=== PATIENT | female | born 1980 | race Caucasian/White ===

== ENCOUNTER 2017-02-23 14:16 | Emergency (ER) | payer MEDICAID ==
[~2017-02-23] VITALS: Ht 157.5 cm; Wt 91.0 kg
[2017-02-23 15:51] LABS: CLARITY URINE CLEAR (CLEAR); COLOR URINE YELLOW (YELLOW); GLUCOSE URINE NEGATIVE (NEGATIVE); KETONES URINE 1+ (NEGATIVE); LEUKOCYTE ESTERASE URINE TRACE (NEGATIVE); NITRITE URINE NEGATIVE (NEGATIVE); OCCULT BLOOD URINE 2+ (NEGATIVE); PH URINE 6.5 (4.5-8.0); PROTEIN URINE NEGATIVE (NEGATIVE); SPECIFIC GRAVITY URINE 1.007 (1.005-1.030); UROBILINOGEN URINE 0.2 E.U./dL (0.2-1.0)
[2017-02-23 15:52] LABS: BASOPHILS % 0.3 % (0.0-2.0); EOSINOPHILS % 0.9 % (0.0-5.0); HEMATOCRIT. 36.1 % (36.0-48.0); LYMPHOCYTES % 13.3 % (20.0-50.0); MEAN CORPUSCULAR HEMOGLOBIN 28.9 pg (28.0-32.0); MEAN CORPUSCULAR VOLUME 87.2 fL (81.0-99.0); MONOCYTES % 5.5 % (2.0-8.0); PLATELET 373 x1000/uL (130-400); RED BLOOD CELL COUNT 4.14 mill/uL (4.2-5.4); RED CELL DISTRIBUTION WIDTH 13.6 % (11.6-14.6)
[2017-02-23 16:08] LABS: CARBON DIOXIDE 27 mEq/L (21-32); CHLORIDE 107 mEq/L (98-107)
[2017-02-23 16:11] LABS: TROPONIN I < 0.02 ng/mL (0.00-0.04)
[2017-02-23] MEDS ORDERED: POTASSIUM CHLORIDE 20MEQ TABLET SR PO NR (16:15)
[2017-02-23] MEDS ORDERED: IBUPROFEN 400MG TABLET PO ONE (17:15)
[2017-02-23] MEDS ORDERED: ACETAMINOPHEN 325MG TABLET PO ONE (17:30)
[2017-02-23 17:31] VITALS: BP 123/74
[2017-02-24 09:42] LABS: *AMPHETAMINES SCREEN URINE NEGATIVE (NEGATIVE); *BARBITURATES SCREEN URINE NEGATIVE (NEGATIVE); *BENZODIAZEPINES SCREEN URINE NEGATIVE (NEGATIVE); *COCAINE SCREEN URINE NEGATIVE (NEGATIVE); CANNABINOID URINE SCREEN NEGATIVE (NEGATIVE); METHADONE URINE SCREEN NEGATIVE (NEGATIVE); OPIATES URINE SCREEN NEGATIVE (NEGATIVE); PHENCYCLIDINE URINE SCREEN NEGATIVE (NEGATIVE)
== END 2017-02-23 17:41 | disposition home or self-care (01) ==
LOC: ER 15:54
DX: R07.89 Other chest pain (principal); R20.0 Anesthesia of skin; E87.6 Hypokalemia; R19.7 Diarrhea, unspecified; R11.10 Vomiting, unspecified
CPT/HCPCS: 36415; 71010; 80053; 80305; 81001; 81025; 83690; 84484; 85025; 93005; 99285; Z7610

== ENCOUNTER 2017-06-03 17:41 | Emergency (ER) | payer MEDICAID ==
[~2017-06-03] VITALS: Ht 157.5 cm; Wt 91.0 kg
[2017-06-04] MEDS ORDERED: SODIUM CHLORIDE 0.9% 1,000 ML IV ONE (00:03)
[2017-06-04] MEDS ORDERED: ONDANSETRON HCL 4MG/2ML VIAL IV SCH (00:15)
[2017-06-04] MEDS ORDERED: KETOROLAC 30MG/ML VIAL IV SCH (00:15)
[2017-06-04 00:20] LABS: CLARITY URINE CLEAR (CLEAR); COLOR URINE YELLOW (YELLOW); GLUCOSE URINE NEGATIVE (NEGATIVE); KETONES URINE NEGATIVE (NEGATIVE); LEUKOCYTE ESTERASE URINE NEGATIVE (NEGATIVE); NITRITE URINE NEGATIVE (NEGATIVE); OCCULT BLOOD URINE NEGATIVE (NEGATIVE); PROTEIN URINE NEGATIVE (NEGATIVE); SPECIFIC GRAVITY URINE 1.009 (1.005-1.030); UROBILINOGEN URINE 0.2 E.U./dL (0.2-1.0)
[2017-06-04 00:20] LABS: BASOPHILS % 0.4 % (0.0-2.0); EOSINOPHILS % 2.5 % (0.0-5.0); HEMATOCRIT. 37.3 % (36.0-48.0); HEMOGLOBIN. 11.9 g/dL (12.0-16.0); LYMPHOCYTES % 23.1 % (20.0-50.0); MEAN CORPUSCULAR HEMOGLOBIN 27.3 pg (28.0-32.0); MEAN CORPUSCULAR VOLUME 85.6 fL (81.0-99.0); MEAN PLATELET VOLUME 6.9 fl (7.4-10.4); MONOCYTES % 7.3 % (2.0-8.0); NEUTROPHILS % 66.7 % (40.0-76.0); PLATELET 392 x1000/uL (130-400); RED BLOOD CELL COUNT 4.36 mill/uL (4.2-5.4); RED CELL DISTRIBUTION WIDTH 13.9 % (11.6-14.6)
[2017-06-04 00:25] LABS: CHLORIDE 107 mEq/L (98-107)
[2017-06-04 00:28] LABS: INR 1.1; PROTHROMBIN TIME 11.6 sec (9.4-11.6)
[2017-06-04 00:33] VITALS: BP 113/66
[2017-06-04 00:33] LABS: CARBON DIOXIDE 26 mEq/L (21-32)
== END 2017-06-04 01:15 | disposition home or self-care (01) ==
LOC: ER 20:12
DX: M54.5 Low back pain (principal); R10.9 Unspecified abdominal pain; Z88.6 Allergy status to analgesic agent
CPT/HCPCS: 36415; 80053; 81003; 81025; 83690; 85025; 85610; 96361; 96374; 96375; 99284; J1885; J2405; J7030; Z7610

== ENCOUNTER 2017-12-27 07:44 | Emergency (ER) | payer MEDICAID ==
[~2017-12-27] VITALS: Ht 170.2 cm; Wt 100.0 kg
[2017-12-27 07:46] VITALS: BP 125/79
[2017-12-27] MEDS ORDERED: ACETAMINOPHEN 325MG TABLET PO ONE (10:00)
== END 2017-12-27 10:21 | disposition home or self-care (01) ==
LOC: ER 08:10
DX: R59.1 Generalized enlarged lymph nodes (principal); Z88.6 Allergy status to analgesic agent
CPT/HCPCS: 81025; 99282

== ENCOUNTER 2018-02-18 14:04 | Emergency (ER) | payer MEDICAID ==
[~2018-02-18] VITALS: Ht 157.5 cm; Wt 95.0 kg
[2018-02-18] MEDS ORDERED: KETOROLAC 30MG/ML VIAL IV STA (15:10)
[2018-02-18] MEDS ORDERED: SODIUM CHLORIDE 0.9% 1,000 ML IV ONE (15:10)
[2018-02-18] MEDS ORDERED: METOCLOPRAMIDE HCL 10MG/2ML VIAL IV ONE (15:15)
[2018-02-18 16:14] LABS: BASOPHILS % 0.4 % (0.0-2.0); HEMATOCRIT. 36.6 % (36.0-48.0); LYMPHOCYTES % 14.2 % (20.0-50.0); MEAN CORPUSCULAR HEMOGLOBIN 27.7 pg (28.0-32.0); MEAN CORPUSCULAR VOLUME 84.5 fL (81.0-99.0); MEAN PLATELET VOLUME 7.4 fl (7.4-10.4); MONOCYTES % 8.1 % (2.0-8.0); NEUTROPHILS % 74.3 % (40.0-76.0); PLATELET 431 x1000/uL (130-400); RED BLOOD CELL COUNT 4.34 mill/uL (4.2-5.4); RED CELL DISTRIBUTION WIDTH 15.5 % (11.6-14.6)
[2018-02-18 16:18] LABS: CHLORIDE 106 mEq/L (98-107); INR 1.1
[2018-02-18 16:23] LABS: ETHANOL BLOOD < 10 mg/dL
[2018-02-18 16:27] LABS: CREATINE KINASE 83 IU/L (26-192)
[2018-02-18 16:37] LABS: CLARITY URINE CLEAR (CLEAR); COLOR URINE YELLOW (YELLOW); KETONES URINE NEGATIVE (NEGATIVE); LEUKOCYTE ESTERASE URINE NEGATIVE (NEGATIVE); NITRITE URINE NEGATIVE (NEGATIVE); OCCULT BLOOD URINE NEGATIVE (NEGATIVE); PROTEIN URINE NEGATIVE (NEGATIVE); SPECIFIC GRAVITY URINE 1.003 (1.005-1.030); UROBILINOGEN URINE 0.2 E.U./dL (0.2-1.0)
[2018-02-18 16:59] LABS: *AMPHETAMINES SCREEN URINE NEGATIVE (NEGATIVE); *BARBITURATES SCREEN URINE NEGATIVE (NEGATIVE); *BENZODIAZEPINES SCREEN URINE NEGATIVE (NEGATIVE); *COCAINE SCREEN URINE NEGATIVE (NEGATIVE); METHADONE URINE SCREEN NEGATIVE (NEGATIVE); PHENCYCLIDINE URINE SCREEN NEGATIVE (NEGATIVE)
[2018-02-18 17:00] LABS: CANNABINOID URINE SCREEN NEGATIVE (NEGATIVE)
[2018-02-18 17:01] LABS: OPIATES URINE SCREEN NEGATIVE (NEGATIVE)
[2018-02-18 19:48] LABS: HCG SCREEN NEGATIVE
[2018-02-18 21:58] VITALS: BP 102/52
== END 2018-02-18 22:00 | disposition home or self-care (01) ==
LOC: ER 14:04
DX: G43.909 Migraine, unspecified, not intractable, without status migrainosus (principal)
CPT/HCPCS: 36415; 70450; 80053; 80305; 81003; 81025; 82550; 84443; 84703; 85025; 85610; 96361; 96374; 96375; 99285; G0482; J1885; J2765; J7030; Z7610

== ENCOUNTER 2020-01-08 11:54 | Emergency (ER) | payer MEDICAID ==
[~2020-01-08] VITALS: Ht 165.1 cm; Wt 81.0 kg
[2020-01-08] MEDS ORDERED: SODIUM CHLORIDE 0.9% 1,000 ML IV ONE (15:26)
[2020-01-08] MEDS ORDERED: FAMOTIDINE 20MG/2ML VIAL IV STA (15:26)
[2020-01-08 15:42] LABS: CLARITY URINE CLOUDY (CLEAR); COLOR URINE YELLOW (YELLOW); KETONES URINE 1+ (NEGATIVE); LEUKOCYTE ESTERASE URINE TRACE (NEGATIVE); NITRITE URINE NEGATIVE (NEGATIVE); OCCULT BLOOD URINE NEGATIVE (NEGATIVE); PH URINE 5.5 (4.5-8.0); PROTEIN URINE NEGATIVE (NEGATIVE); SPECIFIC GRAVITY URINE 1.021 (1.005-1.030); UROBILINOGEN URINE 0.2 E.U./dL (0.2-1.0)
[2020-01-08 15:45] LABS: BASOPHILS % 0.5 % (0.0-2.0); HEMATOCRIT. 38.5 % (36.0-48.0); HEMOGLOBIN. 12.7 g/dL (12.0-16.0); LYMPHOCYTES % 16.5 % (20.0-50.0); MEAN CORPUSCULAR HEMOGLOBIN 27.9 pg (28.0-32.0); MEAN CORPUSCULAR VOLUME 84.7 fL (81.0-99.0); MEAN PLATELET VOLUME 7.1 fl (7.4-10.4); MONOCYTES % 6.1 % (2.0-8.0); NEUTROPHILS % 75.9 % (40.0-76.0); PLATELET 443 x1000/uL (130-400); RED BLOOD CELL COUNT 4.54 mill/uL (4.2-5.4); RED CELL DISTRIBUTION WIDTH 15.1 % (11.6-14.6)
[2020-01-08 15:49] LABS: CHLORIDE 108 mEq/L (98-107)
[2020-01-08 16:00] LABS: INR 1.1; PROTHROMBIN TIME 11.4 sec (9.6-11.0)
[2020-01-08 16:09] LABS: HCG SCREEN NEGATIVE
[2020-01-08] MEDS ORDERED: MAGNESIUM/ALUMINUM HYDROXIDE/SIMETHICONE 30ML UDC PO ONE (17:15)
[2020-01-08] MEDS ORDERED: ONDANSETRON HCL 4MG/2ML INJ IV ONE (18:15)
[2020-01-08] MEDS ORDERED: MORPHINE SULFATE 4 MG/ML CPJ (NOT FOR IM USE) IV ONE (18:15)
[2020-01-08 18:22] VITALS: BP 144/91
== END 2020-01-08 18:57 | disposition home or self-care (01) ==
LOC: ER 12:02
DX: R10.13 Epigastric pain (principal); N39.0 Urinary tract infection, site not specified; M54.9 Dorsalgia, unspecified; Z88.6 Allergy status to analgesic agent
CPT/HCPCS: 36415; 71045; 80053; 81003; 81025; 83690; 84484; 84703; 85025; 85610; 93005; 96374; 96375; 99285; J2270; J2405; J3490; J7030

== ENCOUNTER 2020-07-23 13:24 | Emergency (ER) | payer MEDICAID ==
[~2020-07-23] VITALS: Ht 157.5 cm; Wt 100.0 kg
[2020-07-23 17:12] LABS: BASOPHILS % 0.4 % (0.0-2.0); EOSINOPHILS % 0.2 % (0.0-5.0); HEMATOCRIT. 39.5 % (36.0-48.0); HEMOGLOBIN. 12.6 g/dL (12.0-16.0); LYMPHOCYTES % 14.3 % (20.0-50.0); MEAN CORPUSCULAR VOLUME 84.7 fL (81.0-99.0); MEAN PLATELET VOLUME 7.6 fl (7.4-10.4); MONOCYTES % 5.6 % (2.0-8.0); NEUTROPHILS % 79.5 % (40.0-76.0); PLATELET 475 x1000/uL (130-400); RED BLOOD CELL COUNT 4.67 mill/uL (4.2-5.4); RED CELL DISTRIBUTION WIDTH 15.3 % (11.6-14.6)
[2020-07-23 17:42] LABS: CHLORIDE 106 mEq/L (98-107)
[2020-07-23 18:24] VITALS: BP 131/77
== END 2020-07-23 19:09 | disposition home or self-care (01) ==
LOC: ER 13:24
DX: F41.0 Panic disorder [episodic paroxysmal anxiety] (principal); F43.0 Acute stress reaction; Z20.822 Contact with and (suspected) exposure to COVID-19; Z63.4 Disappearance and death of family member
CPT/HCPCS: 36415; 71045; 80053; 83880; 84484; 85025; 93005; 99285; C9803; U0003